=== PATIENT | female | born 2000 | race Caucasian/White ===

== ENCOUNTER → 2024-06-21 10:57 | Outpatient (REF) | payer OTHER, SELFPAY | LOC: EMG 10:57 | PROVIDERS: ATTENDING PHYSICIAN Orthopaedic Surgery; FAMILY PHYSICIAN Family Medicine | DX: M79.642 Pain in left hand (principal); R20.0 Anesthesia of skin; G56.02 Carpal tunnel syndrome, left upper limb | CPT/HCPCS: 95886; 95910 ==

== ENCOUNTER 2024-10-29 06:22 | Day surgery (SDC) | payer OTHER, SELFPAY | END 2024-10-29 15:31 | disposition home or self-care (01) | LOC: GI 06:22 | PROVIDERS: ATTENDING PHYSICIAN Student in an Organized Health Care Education/Training Program | DX: R12 Heartburn (principal); K44.9 Diaphragmatic hernia without obstruction or gangrene; K21.00 Gastro-esophageal reflux disease with esophagitis, without bleeding | CPT/HCPCS: 43239; 88305; 88342 ==

== ENCOUNTER → 2024-11-05 07:20 | Outpatient (REF) | payer OTHER, SELFPAY | LOC: HWRAD 07:20 | PROVIDERS: ATTENDING PHYSICIAN Nurse Practitioner Adult Health; FAMILY PHYSICIAN Family Medicine | DX: E66.813 Obesity, class 3 (principal); E28.2 Polycystic ovarian syndrome; K21.00 Gastro-esophageal reflux disease with esophagitis, without bleeding; R00.0 Tachycardia, unspecified; R06.83 Snoring | CPT/HCPCS: 76700 ==

== ENCOUNTER 2024-12-21 06:24 | Day surgery (SDC) | payer OTHER, SELFPAY | END 2024-12-21 11:36 | disposition home or self-care (01) | LOC: GI 06:24 | PROVIDERS: ATTENDING PHYSICIAN Student in an Organized Health Care Education/Training Program | DX: R12 Heartburn (principal); K44.9 Diaphragmatic hernia without obstruction or gangrene; K21.00 Gastro-esophageal reflux disease with esophagitis, without bleeding; K22.89 Other specified disease of esophagus; K31.7 Polyp of stomach and duodenum; K20.0 Eosinophilic esophagitis | CPT/HCPCS: 43239; 88305 ==

== ENCOUNTER → 2025-01-03 06:59 | Outpatient (REF) | payer OTHER, SELFPAY | LOC: HWRCS 06:59 | PROVIDERS: ATTENDING PHYSICIAN Internal Medicine Cardiovascular Disease; FAMILY PHYSICIAN Family Medicine | DX: R00.2 Palpitations (principal) | CPT/HCPCS: 93306 ==